=== PATIENT | female | born 1990 | race African-American/Black ===

== ENCOUNTER 2021-08-19 06:26 | Emergency (ER) | payer SELFPAY ==
[~2021-08-19] VITALS: Ht 172.7 cm; Wt 70.0 kg
[2021-08-19 06:30] VITALS: BP 116/72
== END 2021-08-19 07:12 | disposition left against medical advice (07) ==
LOC: ER 06:34
DX: Z53.21 Procedure and treatment not carried out due to patient leaving prior to being seen by health care provider (principal)
CPT/HCPCS: 99283